=== PATIENT | male | born 1960 | race Caucasian/White ===

== ENCOUNTER 2016-08-31 10:57 | Outpatient (CLI) | payer OTHER ==
[2015-06-29 10:04] VITALS: BP 105/70
[2016-08-31 11:46] LABS: eGFR (African) > 60; eGFR (Non-African) > 60
== END 2016-08-31 11:00 ==
LOC: LAB 10:57
PROVIDERS: ATTEND Family Medicine
DX: J13 Pneumonia due to Streptococcus pneumoniae (principal)
CPT/HCPCS: 36415; 80053; 80061; 82043; 83036; 84153

== ENCOUNTER 2016-09-21 11:17 | Outpatient (CLI) | payer OTHER ==
[2015-06-29 10:04] VITALS: BP 105/70
== END 2016-09-21 11:18 ==
LOC: POD 11:17
PROVIDERS: ATTEND Podiatrist Public Medicine
DX: L60.0 Ingrowing nail (principal); M79.675 Pain in left toe(s); B35.1 Tinea unguium
CPT/HCPCS: 99213

== ENCOUNTER 2016-10-03 16:41 | Outpatient (CLI) | payer OTHER ==
[2015-06-29 10:04] VITALS: BP 105/70
--- NOTE | 2016-10-03 17:03 | Diagnostic Imaging Report ---
[facility] [id number] [facility].[address] [id number] Report Submission Date: Oct 03, 2016 5:00:58 PM CDT Patient Study Name: LUIS FERNANDO MALDONADO Date: Oct 03, 2016 4:46:11 PM CDT Modality Type: CR Gender: M Description: CHEST : 60 Institution: [facility] Physician: WILLI ROCHA - OP Chest 2 views History: Pneumonia Findings: Minimal linear atelectasis or scar is present at the left lung base. There is no pneumonia or pleural effusion. Heart size and pulmonary vascularity are normal. Osseous structures are grossly intact. Impression: Minimal left basilar atelectasis or scar. No evidence of pneumonia. Electronically signed on Oct 03, 2016 5:00:58 PM CDT by: Louie ORTA
== END 2016-10-03 16:46 | disposition home or self-care (01) ==
LOC: RAD 16:41
PROVIDERS: ATTEND Family Medicine
DX: J13 Pneumonia due to Streptococcus pneumoniae (principal)
CPT/HCPCS: 71020

== ENCOUNTER 2016-10-24 10:19 | Outpatient (CLI) | payer OTHER ==
[2015-06-29 10:04] VITALS: BP 105/70
[2016-10-24 11:14] LABS: eGFR (African) > 60; eGFR (Non-African) > 60
== END 2016-10-24 10:20 ==
LOC: LAB 10:19
PROVIDERS: ATTEND Family Medicine
DX: E78.5 Hyperlipidemia, unspecified (principal)
CPT/HCPCS: 36415; 80053; 80061

== ENCOUNTER 2016-12-14 09:26 | Outpatient (CLI) | payer OTHER ==
[2015-06-29 10:04] VITALS: BP 105/70
== END 2016-12-14 09:27 ==
LOC: POD 09:26
PROVIDERS: ATTEND Podiatrist Public Medicine
DX: B35.1 Tinea unguium (principal); E11.9 Type 2 diabetes mellitus without complications; L60.0 Ingrowing nail; M79.674 Pain in right toe(s); M79.675 Pain in left toe(s); M72.2 Plantar fascial fibromatosis
CPT/HCPCS: 99203

== ENCOUNTER 2017-03-23 09:35 | Outpatient (CLI) | payer OTHER ==
[2015-06-29 10:04] VITALS: BP 105/70
[2017-03-23 20:31] LABS: TOTAL PROTEIN 7.2 g/dL (6.0-8.5)
== END 2017-03-23 09:36 ==
LOC: LAB 09:35
PROVIDERS: ATTEND Family Medicine
DX: Z12.5 Encounter for screening for malignant neoplasm of prostate (principal); E78.5 Hyperlipidemia, unspecified; E11.9 Type 2 diabetes mellitus without complications
CPT/HCPCS: 36415; 80053; 80061; 83036; 84153

== ENCOUNTER 2017-04-12 09:42 | Outpatient (CLI) | payer OTHER ==
[2015-06-29 10:04] VITALS: BP 105/70
== END 2017-04-12 09:43 ==
LOC: POD 09:42
PROVIDERS: ATTEND Podiatrist Public Medicine
DX: E11.9 Type 2 diabetes mellitus without complications (principal); B35.1 Tinea unguium; L60.0 Ingrowing nail; M79.674 Pain in right toe(s); M79.675 Pain in left toe(s)
CPT/HCPCS: 99203

== ENCOUNTER 2017-07-12 08:39 | Outpatient (CLI) | payer OTHER ==
[2015-06-29 10:04] VITALS: BP 105/70
== END 2017-07-12 08:40 ==
LOC: POD 08:39
PROVIDERS: ATTEND Podiatrist Public Medicine
DX: B35.1 Tinea unguium (principal); E11.9 Type 2 diabetes mellitus without complications; L60.0 Ingrowing nail; M72.2 Plantar fascial fibromatosis; M79.674 Pain in right toe(s); M79.675 Pain in left toe(s)
CPT/HCPCS: 11721; G0463

== ENCOUNTER 2017-09-18 09:01 | Outpatient (CLI) | payer OTHER ==
[2015-06-29 10:04] VITALS: BP 105/70
[2017-09-18 10:37] LABS: eGFR (African) > 60; eGFR (Non-African) > 60
== END 2017-09-18 09:03 ==
LOC: LAB 09:01
PROVIDERS: ATTEND Family Medicine
DX: E11.9 Type 2 diabetes mellitus without complications (principal); Z12.5 Encounter for screening for malignant neoplasm of prostate
CPT/HCPCS: 36415; 80053; 80061; 82043; 83036; 84153; G0103

== ENCOUNTER 2017-10-11 08:29 | Outpatient (CLI) | payer OTHER ==
[2015-06-29 10:04] VITALS: BP 105/70
== END 2017-10-11 08:30 ==
LOC: POD 08:29
PROVIDERS: ATTEND Podiatrist Public Medicine
DX: B35.1 Tinea unguium (principal); E11.9 Type 2 diabetes mellitus without complications; Z09 Encounter for follow-up examination after completed treatment for conditions other than malignant neoplasm; L60.0 Ingrowing nail; M72.2 Plantar fascial fibromatosis; M79.674 Pain in right toe(s); M79.675 Pain in left toe(s)
CPT/HCPCS: 11721; 99213

== ENCOUNTER 2018-01-24 08:22 | Outpatient (CLI) | payer OTHER ==
[2015-06-29 10:04] VITALS: BP 105/70
== END 2018-01-24 08:23 ==
LOC: POD 08:22
PROVIDERS: ATTEND Podiatrist Public Medicine
DX: B35.1 Tinea unguium (principal); E11.9 Type 2 diabetes mellitus without complications; Z09 Encounter for follow-up examination after completed treatment for conditions other than malignant neoplasm; L60.0 Ingrowing nail; M72.2 Plantar fascial fibromatosis; M79.674 Pain in right toe(s); M79.675 Pain in left toe(s)
CPT/HCPCS: 11721; 99213

== ENCOUNTER 2018-05-21 09:38 | Outpatient (CLI) | payer OTHER ==
[2015-06-29 10:04] VITALS: BP 105/70
[2018-05-21 11:16] LABS: eGFR (Non-African) > 60
== END 2018-05-21 09:40 ==
LOC: LAB 09:38
PROVIDERS: ATTEND Family Medicine
DX: E11.9 Type 2 diabetes mellitus without complications (principal); Z12.5 Encounter for screening for malignant neoplasm of prostate
CPT/HCPCS: 36415; 80053; 83036; 84153

== ENCOUNTER 2018-06-23 08:38 | Outpatient (CLI) | payer OTHER ==
[2015-06-29 10:04] VITALS: BP 105/70
[2018-06-24 07:43] LABS: eGFR (Non-African) > 60
[2018-06-24 07:44] LABS: BASOPHILS % 0.4 (0.0-1.5); EOSINOPHILS % 1.8 % (0.0-6.8); MEAN CORPUSCULAR HEMOGLOBIN 31.2 pg (28.0-34.0); MONOCYTES % 6.4 % (0.0-11.0)
[2018-06-24 07:45] LABS: NEUTROPHILS # 3.3 # k/uL (1.4-7.7)
== END 2018-06-23 09:00 ==
LOC: LAB 08:38
PROVIDERS: ATTEND Family Medicine
DX: R41.0 Disorientation, unspecified (principal)
CPT/HCPCS: 36415; 80053; 85025

== ENCOUNTER 2018-11-19 09:25 | Outpatient (CLI) | payer OTHER ==
[2015-06-29 10:04] VITALS: BP 105/70
== END 2018-11-19 09:27 ==
LOC: LAB 09:25
PROVIDERS: ATTEND Family Medicine
DX: E11.9 Type 2 diabetes mellitus without complications (principal); Z79.4 Long term (current) use of insulin
CPT/HCPCS: 36415; 80053; 80061; 82043; 83036; 84153

== ENCOUNTER 2019-05-20 13:38 | Outpatient (CLI) | payer OTHER ==
[2015-06-29 10:04] VITALS: BP 105/70
== END 2019-05-20 13:43 ==
LOC: LABRHC 13:38
PROVIDERS: ATTEND Family Medicine
DX: E11.9 Type 2 diabetes mellitus without complications (principal); Z79.4 Long term (current) use of insulin
CPT/HCPCS: 83036